=== PATIENT | female | born 1975 | race Caucasian/White ===

== ENCOUNTER → 2017-08-15 18:19 | Outpatient (CLI) | payer BC, SELFPAY ==
--- NOTE | 2017-08-15 18:23 | US_ITS ---
STUDY: PELVIC ULTRASOUND REASON FOR EXAM: Female, 42 years old. Abnormal bleeding LMP: July 31, 2017 TECHNIQUE: Transverse and longitudinal imaging of the pelvis was obtained transabdominally and transvaginally using real-time ultrasound. COMPARISON: None. FINDINGS: The uterus is anteverted and is in a midline position. The uterus measures 6.2 x 3.2 x 4.4 cm. The cervix is unremarkable. The endometrium measures 6.9 mm in thickness, and is hyperechoic. There is an echogenic focus adjacent to the endometrium anteriorly measuring 2 mm. There is an anechoic focus adjacent to the endometrium posteriorly measuring 3 mm. There is no demonstrated myometrial mass. I.U.D. - The patient does not have an I.U.D. The right ovary is visualized. The right ovary measures 2.7 x 1.8 x 2.2 cm. There are follicles in the right ovary without a dominant cyst. There is no visualized right adnexal mass or complex lesion. There is normal arterial and normal venous vascularity. The left ovary is visualized. The left ovary measures 2.1 x 1.1 x 1.9 cm. There are follicles in the left ovary without a dominant cyst. There is no visualized left adnexal mass or complex lesion. There is normal arterial and normal venous vascularity. There is no fluid in the cul-de-sac. No significant abnormalities are seen on limited visualization of the urinary bladder. US/Pelvic (Non ) IMPRESSION: The endometrium measures 6.9 mm. The margin is not well seen. There is an echogenic focus anterior to the endometrium, and there is a small cystic focus posterior to the endometrium. Adenomyosis cannot be excluded. No abnormalities are seen in the ovaries. There is no free fluid. Electronically Signed: Adriana Slade MD at 22:59 EDT Tel Direct: [phone], Service support ,
--- NOTE | 2017-08-15 18:36 | US_ITS ---
STUDY: PELVIC ULTRASOUND REASON FOR EXAM: Female, 42 years old. Abnormal bleeding LMP: July 31, 2017 TECHNIQUE: Transverse and longitudinal imaging of the pelvis was obtained transabdominally and transvaginally using real-time ultrasound. COMPARISON: None. FINDINGS: The uterus is anteverted and is in a midline position. The uterus measures 6.2 x 3.2 x 4.4 cm. The cervix is unremarkable. The endometrium measures 6.9 mm in thickness, and is hyperechoic. There is an echogenic focus adjacent to the endometrium anteriorly measuring 2 mm. There is an anechoic focus adjacent to the endometrium posteriorly measuring 3 mm. There is no demonstrated myometrial mass. I.U.D. - The patient does not have an I.U.D. The right ovary is visualized. The right ovary measures 2.7 x 1.8 x 2.2 cm. There are follicles in the right ovary without a dominant cyst. There is no visualized right adnexal mass or complex lesion. There is normal arterial and normal venous vascularity. The left ovary is visualized. The left ovary measures 2.1 x 1.1 x 1.9 cm. There are follicles in the left ovary without a dominant cyst. There is no visualized left adnexal mass or complex lesion. There is normal arterial and normal venous vascularity. There is no fluid in the cul-de-sac. No significant abnormalities are seen on limited visualization of the urinary bladder. US/Transvaginal Non- IMPRESSION: The endometrium measures 6.9 mm. The margin is not well seen. There is an echogenic focus anterior to the endometrium, and there is a small cystic focus posterior to the endometrium. Adenomyosis cannot be excluded. No abnormalities are seen in the ovaries. There is no free fluid. Electronically Signed: Adriana Slade MD at 22:59 EDT Tel Direct: [phone], Service support ,
== END ==
PROVIDERS: Family Provider Obstetrics & Gynecology; PCP Obstetrics & Gynecology; Visit Provider Obstetrics & Gynecology
DX: N92.6 Irregular menstruation, unspecified (principal)
CPT/HCPCS: 76830; 76856; 93976

== ENCOUNTER → 2017-08-18 15:21 | Outpatient (CLI) | payer BC, SELFPAY ==
[2017-08-18 18:03] LABS: hCG Titer Quant., Serum < 1 mIU/mL (<9 non-preg)
[2017-08-18 18:07] LABS: Estradiol 33.1 pg/mL; Free T3 2.1 pg/mL (2.18-3.98); T4 Free Direct 0.93 ng/dL (0.76-1.46); Thyroid Stim Hormone (TSH) 2.21 uIU/mL (0.358-3.74)
[2017-08-18 18:10] LABS: Progesterone Level 0.25 ng/mL (See Comment)
[2017-08-18 19:09] LABS: Hematocrit 41.1 % (37-47); Hemoglobin 13.3 g/dl (12.0-15.0); Mean Corp Hgb Conc 32.4 g/gl (32-36); Mean Corpuscular Hgb 27.9 pg (27.0-32.0); Mean Corpuscular Volume 86.2 fL (81-99); Mean Platelet Vol. 11.8 fl (6.2-12.0); Platelet Count 297 K/mm3 (150-450); Red Blood Count 4.77 M/mm3 (4.2-5.4); White Blood Count 10.7 K/mm3 (4.4-11.0)
[2017-08-18 19:22] LABS: Scan Indicated on CBC? Y/N NO
[2017-08-18 19:37] LABS: Hemoglobin A1c 5.7 % (4.2-6.3)
== END ==
PROVIDERS: Visit Provider Obstetrics & Gynecology
DX: N92.6 Irregular menstruation, unspecified (principal)
CPT/HCPCS: 36415; 82670; 83036; 84144; 84403; 84439; 84443; 84481; 84702; 85027